=== PATIENT | male | born 2000 | race Caucasian/White ===

== ENCOUNTER 2021-05-28 00:22 | Emergency (ER) | payer MEDICAID ==
[~2021-05-28] VITALS: Ht 167.6 cm; Wt 67.6 kg
[2021-05-28 00:25] VITALS: BP 128/81
--- NOTE | 2021-05-28 00:45 | NUR ---
RECEIVED IN BED 12, BIBA, WITH C/O INGESTING PERCOCET, NOT PRESCRIBED FOR HIM. RECEIVED NARCAN CINDER BLOCK [place]ON. IS NOW AWAKE, ALERT, FOLLOWS COMMANDS, IS COOPERATIVE
[2021-05-28 01:45] VITALS: BP 128/81
--- NOTE | 2021-05-28 01:45 | NUR ---
Patient discharged with v/s stable. Written and verbal after care instructions given and explained. Patient verbalized understanding. Ambulatory with steady gait. All questions addressed prior to discharge. Advised to follow up with PMD.
[2021-05-28] MEDS ORDERED: HALOPERIDOL IM 5 MG/ML VIAL ONE (04:36)
[2021-05-28] MEDS ORDERED: LORazepam 2 MG/ML VIAL ONE (04:36)
[2021-05-28] MEDS ORDERED: diphenhydrAMINE 50 MG/ML VIAL ONE (04:36)
== END 2021-05-28 01:45 | disposition home or self-care (01) ==
LOC: MED 00:22
DX: T40.2X4A Poisoning by other opioids, undetermined, initial encounter (principal); Y92.89 Other specified places as the place of occurrence of the external cause
CPT/HCPCS: 99283; J1200; J1630; J2060